=== PATIENT | female | born 1945 | race Caucasian/White ===

== ENCOUNTER 2021-07-29 13:14 | Emergency (ER) | payer OTHER ==
--- OUTSIDE RECORDS SUMMARY | 2021-07-29 13:19 | XMS REPORT | Continuity of Care Document ---
:1945 Author Organization [facility] t Address [address] [place] [address] Care Team Providers Name Role Phone FERNIE SCHWARZ Primary Care Physician Unavailable Betina LOYD Attending Clinician Unavailable Keenan WILSONP, D Attending Clinician Fernie Schwarz Attending Clinician Lab, Fam Pob I Attending Clinician Unavailable Traci GIL Attending Clinician TRACI Attending Clinician Unavailable Brandon WINSTON Attending Clinician Unavailable Tish AMANDA, S Attending Clinician Colton ER MEDICAL TECHNICIAN, F Attending Clinician Unavailable Roman AMANDA, L Attending Clinician Edinson Roa PT Attending Clinician Unavailable Doctor Unassigned, Name Attending Clinician Unavailable TISH, S Admitting Clinician Unavailable Payers Payer Name Policy Type Policy Number Effective Date Expiration Date Brandon sweet MEDICARE PART A [id number] 2011 \T\ B 00:00:00 [facility] - [id number] 2013 OUT OF STATE 00:00:00 Problems Condition Condition Condition Status Onset Resolution Last Treating Co mments Source Name Details Category Date Date Treatment Clinician Date 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 Social History Social Habit Start Date Stop Date Quantity Comments Source Exposure to Yes University of SARS-CoV-2 [facility] (event) Branch Sex Assigned At Universit y of [facility] Alcohol intake 2019-08-24 2019-08-24 Current drinker Unive rsity of 00:00:00 00:00:00 of alcohol [facility] (finding) [place] Tobacco use and 2019-08-24 2019-08-24 Never used Universit y of exposure 00:00:00 00:00:00 [facility] Alcohol Comment 2005-12-31 2005-12-31 rare Universit y of 00:00:00 00:00:00 [facility] Smoking Status Start Date Stop Date Source Never smoker [facility] Medications Ordered Filled Start Stop Current Ordering Indication Dosage Frequency Signature Comments Components Source Medication Medication Date Date Medication? Clinician (SIG) Name Name tetanus-dip 2020- No .5mL 0.5 mL, Un ludmila htheria 08-23 Intramuscu ity o f toxoids 09:45: 08:46 lar, ONCE, Av as (TDVAX) 2-2 00 :00 1 dose, Medic al Lf unit/0.5 [facility] Branch mL 08/24/19 at injection 0445, 0.5 mL Routine acetaminoph 2020- No 1000mg 1,000 mg, Univers en 08-23 Oral, ity of (TYLENOL) 09:30: 08:47 [place] :00 dose, [facility] 1,000 mg 08/24/19 at [facility] h 0430, Routine ondansetron 2020- No 4mg 4 mg, Univ ers (ZOFRAN-ODT 08-23 Oral, ity of ) 09:30: 08:20 ONCE, 1 [place] disintegrat 00 :00 dose, Mon Med ical ing tablet 08/24/19 at [facility] 4 mg 0430, Routine PHENERGAN Yes 1 every Unive rs 25 MG 5-05 6hrs as ity of RECTAL SUPP 00:[place] nausea/vom Medical iting Branch CELEXA 40 Yes 1 tab by Univ ers MG ORAL TAB 5-05 mouth ity of 00:00: daily [place] [id number] Medical Branch PHENERGAN Yes 1 every Unive rs 25 MG 5-05 6hrs as ity of RECTAL SUPP 00:[place] nausea/vom [place]ing Branch CELEXA 40 Yes 1 tab by Univ ers MG ORAL TAB 5-05 mouth ity of 00:00: daily [facility] PHENERGAN Yes 1 every Unive rs 25 MG 5-05 6hrs as ity of RECTAL SUPP 00:00[place] nausea/vom [place]ing Branch CELEX 40 Yes 1 tab by Univ ers MG ORAL TAB 5-05 mouth ity of 00:00: daily [facility] Branch PHENERGAN Yes 1 every Unive rs 25 MG 5-05 6hrs as ity of RECTAL SUPP 00:[place] nausea/vom [place]ing Branch CELEX 40 Yes 1 tab by Univ ers MG ORAL TAB 5-05 mouth ity of 00:00: daily [facility] PHENERGAN Yes 1 every Unive rs 25 MG 5-05 6hrs as ity of RECTAL SUPP 00:[place]: [place] nausea/vom [place] iting Branch CELEX 40 Yes 1 tab by Univ ers MG ORAL TAB 5-05 mouth ity of 00:00: daily [facility] PHENERGAN Yes 1 every Unive rs 25 MG 5-05 6hrs as ity of RECTAL SUPP 00:00[place] nausea/vom [place] iting Branch CELEX 40 Yes 1 tab by Univ ers MG ORAL TAB 5-05 mouth ity of 00:00: daily [facility] Branch PHENERGAN Yes 1 every Unive rs 25 MG 5-05 6hrs as ity of RECTAL SUPP 00:[place] nausea/vom [place] iting Branch CELEXA 40 Yes 1 tab by Univ ers MG ORAL TAB 5-05 mouth ity of 00:00: daily [facility] Branch PHENERGAN Yes 1 every Unive rs 25 MG 5-05 6hrs as ity of RECTAL SUPP 00:00: [place] 00 nausea/vom Medical iting Branch CELEXA 40 Yes 1 tab by Univ ers MG ORAL TAB 5-05 mouth ity of 00:00: daily [facility] Branch PHENERGAN Yes 1 every Unive rs 25 MG 5-05 6hrs as ity of RECTAL SUPP 00:00: [place] 00 nausea/vom Medical iting Branch CELEXA 40 Yes 1 tab by Univ ers MG ORAL TAB 5-05 mouth ity of 00:00: daily [place] [facility] PHENERGAN Yes 1 every Unive rs 25 MG 5-05 6hrs as ity of RECTAL SUPP 00:00: [place] 00 nausea/vom Medical iting Branch CELEXA 40 Yes 1 tab by Univ ers MG ORAL TAB 5-05 mouth ity of 00:00: daily [place] [facility] PHENERGAN Yes 1 every Unive rs 25 MG 5-05 6hrs as ity of RECTAL SUPP 00:00: [place] 00 nausea/vom Medical iting Branch CELEXA 40 Yes 1 tab by Univ ers MG ORAL TAB 5-05 mouth ity of 00:00: daily Medical Branch PHENERGAN Yes 1 every Unive rs 25 MG 5-05 6hrs as ity of RECTAL SUPP 00:00: [place] 00 nausea/vom Medical iting Branch CELEXA 40 Yes 1 tab by Univ ers MG ORAL TAB 5-05 mouth ity of 00:00: daily Medical Branch ATARAX 25 Yes 1 tab by Univ ers MG ORAL TAB 4-05 mouth ity of 00:00: every 6 [place] 00 hours as Medical needed for Branch hives itching ATARAX 25 Yes 1 tab by Univ ers MG ORAL TAB 4-05 mouth ity of 00:00: every 6 [place] 00 hours as Medical needed for Branch hives itching ATARAX 25 Yes 1 tab by Univ ers MG ORAL TAB 4-05 mouth ity of 00:00: every 6 [place] 00 hours as Medical needed for Branch hives itching ATARAX 25 Yes 1 tab by Univ ers MG ORAL TAB 4-05 mouth ity of 00:00: every 6 [place] 00 hours as Medical needed for Branch hives itching ATARAX 25 Yes 1 tab by Univ ers MG ORAL TAB 4-05 mouth ity of 00:00: every 6 [place] 00 hours as Medical needed for Branch hives itching ATARAX 25 2007-0 Yes 1 tab by Univ ers MG ORAL TAB 4-05 mouth ity of 00:00: every 6 [place] 00 hours as Medical needed for Branch hives itching ATARAX 25 Yes 1 tab by Univ ers MG ORAL TAB 4-05 mouth ity of 00:00: every 6 [place] 00 hours as Medical needed for Branch hives itching ATARAX 25 Yes 1 tab by Univ ers MG ORAL TAB 4-05 mouth ity of 00:00: every 6 [place] 00 hours as Medical needed for Branch hives itching ATARAX 25 Yes 1 tab by Univ ers MG ORAL TAB 4-05 mouth ity of 00:00: every 6 [place] 00 hours as Medical needed for Branch hives itching ATARAX 25 Yes 1 tab by Univ ers MG ORAL TAB 4-05 mouth ity of 00:00: every 6 [place] 00 hours as Medical needed for Branch hives itching ATARAX 25 Yes 1 tab by Univ ers MG ORAL TAB 4-05 mouth ity of 00:00: every 6 [place] 00 hours as Medical needed for Branch hives itching ATARAX 25 Yes 1 tab by Univ ers MG ORAL TAB 4-05 mouth ity of 00:00: every 6 [place] 00 hours as Medical needed for Branch hives itching Immunizations Ordered Filled Immunization Date Status Comments Sour e Immunization Name Name Td 2019-08-24 Completed University of 00:00:00 [facility] Branch Td 2019-08-24 Completed University of 00:00:00 [facility] Branch Td 2019-08-24 Completed University of 00:00:00 [facility] Branch Td 2019-08-24 Completed University of 00:00:00 [facility] Branch Td 2019-08-24 Completed University of 00:00:00 [facility] Branch Td 2019-08-24 Completed University of 00:00:00 [facility] Vital Signs Vital Name Observation Time Observation Value Comments Source Systolic blood 2019-08-24 07:28:40 149 mm[Hg] Univer sity of pressure [facility] Diastolic blood 2019-08-24 07:28:40 76 mm[Hg] Unive rsity of pressure [facility] Heart rate 2019-08-24 07:28:40 75 /[facility] Body temperature 2019-08-24 07:28:40 36.61 [facility] Respiratory rate 2019-08-24 07:28:40 18 /min [facility] Body height 2019-08-24 07:25:00 160 cm [facility] Body weight 2019-08-24 07:25:00 69.854 kg [facility] BMI 2019-08-24 07:25:00 27.28 kg/m2 [facility] Oxygen saturation in 2019-08-24 07:25:00 99 /min [facility] Arterial blood by [facility] Pulse oximetry [place] Procedures Procedure Date / Time Performed Performing Clinician Sourc e [place] RESUPERF WND BODY 2019-08-24 08:36:43 Shona Winston [facility] 2.5CM OR LESS [facility] CT HEAD WO CONTRAST 2019-08-24 07:50:42 Shona Winston [facility] PHYSICIAN ORDERS 2018-12-04 05:01:00 Doctor Unassigned, No Unive [facility] Encounters Start End Encounter Admission Attending Care Care Encounter Source Date/Time Date/Time Type Type Clinicians Facility Department ID 2021-05-10 Outpatient STLMLC STLMLC [id number] 13:07:03 [facility] 2020-06-08 2020-06-08 Outpatient Samantha LOYD [facility] [id number] Univers 11:20:00 11:20:00 TIFFANY [id number] [facility] [place] 2020-06-08 2020-06-08 Outpatient Samantha LOYD [facility] [id number] Univers 11:20:00 11:20:00 TIFFANY [facility] [place] 2020-05-11 2020-05-11 Outpatient Samantha LOYD [facility] [id number] Univers 10:00:00 10:00:00 TIFFANY [id number] [facility] [place] 2020-05-11 2020-05-11 Outpatient Samantha LOYD [facility] [id number] Univers 10:00:00 10:00:00 [facility] 2020-01-25 2020-01-25 Telephone KeenanRUST [id number] 00:00:00 00:00:00 [employer] [facility] [id number] [place] [id number] City [phone] Primary & 370 Specialty Care 2020-01-25 2020-01-25 Telephone Keenan [facility] [id number] Univers 00:00:00 00:00:00 KenWallstra D HEALTH [id number] [place] [id number] [place] [phone] [facility] Primary & 370 Branch Specialty Care 2020-01-25 2020-01-25 Telephone [place] Alan [id number] Univers 00:00:00 00:00:00 [facility] [id number] ity of [id number] [place] [phone] [facility] Primary 314 Branch Care Clinic 2020-01-25 2020-01-25 Telephone Keenan [facility] [id number] Univers 00:00:00 00:00:00 [employer] HEALTH [id number] [place] [id number] [place] [facility] [phone] [facility] Primary & 370 Branch Specialty Care 2020-01-24 2020-01-24 Laboratory Lab, Adc Fam Pob I [facility] 1.2. [id number] Univers 13:06:48 13:26:48 Only Traci Nicci [facility] [id number] ity of [place] [id number] Av as Professio [phone] Ms dical [place] [id number] Branch Office [address] One 2020-01-24 2020-01-24 Outpatient [facility] [id number] Univers 13:00:00 13:00:[id number] [facility] 2020-01-24 2020-01-24 Outpatient R TRACI [facility] [id number] Univers 13:00:00 13:00:00 NICCI [facility] [place] 2019-08-24 2019-08-24 Emergency X TISH [facility] ERT [id number] Univers 02:26:29 03:50:[address] [facility] 2019-08-24 2019-08-24 Emergency Tish [facility] [id number] Univers 02:26:29 03:50:00 Shona Taylor Oscar [id number] ity of [id number] [place] [phone] [facility] 084 Branch 2018-12-31 2018-12-31 Ancillary ColtonRasheed [facility] 1.2.840. 114 [id number] Univers 07:59:39 08:44:39 Visit Jayjay Owens [id number] it[id number] Profess[place] [phone] Ms dical nal 179 [facility] 2018-12-24 2018-12-24 Ancillary Rasheed Segura [facility] 1.2.840. [id number] Univers 08:10:58 08:55:58 Visit Jayjay Owens [id number] it[id number] Profess[place] [phone] Ms dical nal 179 [facility] 2018-12-22 2018-12-22 Ancillary Rasheed Segura [facility] 1.2.840. 114 [id number] Univers 08:03:25 08:48:25 Visit Jayjay Owens [id number] it[id number] Profess[place] [phone] Ms dical nal 179 [facility] 2018-12-19 2018-12-19 Ethan Neves [facility] [id number] Univers 00:00:00 00:00:00 Management Oscar Rao [id number] ity of [id number] Profess[place] [phone] Ms dical nal 179 [facility] 2018-12-10 2018-12-10 Ancillary Kenna Merida [facility] 1 .2.840.114 [id number] Univers 08:56:50 09:41:50 Visit Jayjay Owens [id number] ity of [place] [id number] Addison Cuetoio [phone] Ms dical [facility] 179 Branch [facility] 2018-12-04 2018-12-04 Orders Doctor TARAH [id number] Univers 00:00:00 00:00:00 Only Unassigned, MILADIS [id number] ity of [place] [facility] [id number] Av as [phone] [address] Results Test Description Test Test Results Result Source Time Comments Comments Laceration 2019-08- Shona Winston MD ? Un iversity of Repair 11 ? 08/24/2019 ?3:[address] [facility] 08:36:43 AMLaceration [place] RepairPerformed by: Shona Winston MDAuthorized by: Shona Winston MD Consent: ?Consent obtained: ?Verbal ?Risks discussed: ?Infection, need for additional repair, poor wound healing, poor cosmetic result, pain, tendon damage and vascular damage ?Alternatives discussed: ?No treatmentAnesthesia (see MAR for exact dosages): ?Anesthesia method: ?Local infiltration ?Local anesthetic: ?Lidocaine 1% WITH epiLaceration details: ?Location: ?Scalp ?Scalp location: ?Occipital ?Length (cm): ?2.5 ?Depth (mm): ?0.5Repair type: ?Repair type: ?SimplePre-procedure details: ?Preparation: ?Patient was prepped and draped in usual sterile fashion and imaging obtained to evaluate for foreign bodiesExploration: ?Hemostasis achieved with: ?Epinephrine ?Wound exploration: wound explored through full range of motion ? ?Wound extent: no areolar tissue violation noted, no fascia violation noted, no foreign bodies/material noted, no muscle damage noted, no nerve damage noted, no tendon damage noted, no underlying fracture noted and no vascular damage noted ? ?Contaminated: no ?Treatment: ?Area cleansed with: ?Hibiclens ?Amount of cleaning: ?Standard ?Irrigation solution: ?Sterile saline ?Visualized foreign bodies/material removed: no ?Skin repair: ?Repair method: ?Warren ?Number of ammon: ?4Approximation: ?Approximation: ?LoosePost-procedure details: ?Dressing: ?Antibiotic ointment ?Patient tolerance of procedure: ?Tolerated well, no immediate complications
[2021-07-29] MEDS ORDERED: TETANUS & DIPHTHERIA TOX,ADULT 0.5 ML VIAL ONE (13:55)
[2021-07-29] MEDS ORDERED: LIDOCAINE 1% MPF 5 ML VIAL ONE (13:55)
[2021-07-29] MEDS ORDERED: DERMABOND SKIN ADHESIVE TOP ONE (14:44)
--- NOTE | 2021-07-29 14:55 | ER ---
Nurse's Notes [facility] Name: Jaqueline Jensen Age: 76 yrs Sex: Female : 1945 Arrival Date: 07/29/2021 Time: 13:17 Bed 12 Private MD: Hill Smallwood T Diagnosis: Laceration without foreign body of right index finger without damage to nail Presentation: 07/29 13:39 Chief complaint: Patient states: Fell last night at 0100 with a plastic basket and it jl7 cut the right pointer finger. Coronavirus screen: At this time, the client does not indicate any symptoms associated with coronavirus-19. Ebola Screen: No symptoms or risks identified at this time. Initial Sepsis Screen: Does the patient meet any 2 criteria? No. Patient's initial sepsis screen is negative. Does the patient have a suspected source of infection? No. Patient's initial sepsis screen is negative. Risk Assessment: Do you want to hurt yourself or someone else? Patient reports no desire to harm self or others. Onset of symptoms was July 29, 2021 at 01:00. 13:39 Method Of Arrival: Ambulatory jl7 13:39 Acuity: DANIEL 4 jl7 Triage Assessment: 13:42 General: Appears in no apparent distress. uncomfortable, Behavior is calm, cooperative, jl7 appropriate for age. Pain: Complains of pain in Right index finger. Musculoskeletal: Reports Pain is 3 out of 10 on a pain scale. Injury Description: Laceration sustained to Right index finger. Historical: - Allergies: 13:42 No Known Allergies; jl7 - PMHx: 13:42 Hypertensive disorder; jl7 - PSHx: 13:42 Cholecystectomy; jl7 - Immunization history:: Client reports receiving the 2nd dose of the Covid vaccine. - Social history:: Smoking status: Patient denies any tobacco usage or history of. Screenin:00 Abuse screen: Denies threats or abuse. Denies injuries from another. Nutritional jl7 screening: No deficits noted. Tuberculosis screening: No symptoms or risk factors identified. Fall Risk Ambulatory Aid- Crutches/Cane/Walker (15 pts). Gait- Normal/Bed Rest/Wheelchair (0 pts) Total Box Fall Scale indicates No Risk (0-24 pts). Vital Signs: 13:39 BP 152 / 83; Pulse 76; Resp 17; Temp 98.9; Pulse Ox 97% ; Weight 62.14 kg; Pain 3/10; jl7 ED Course: 13:17 Patient arrived in ED. am2 13:17 Hill Smallwood MD is Private Physician. am2 13:28 Umesh Whitman NP is PHCP. pm1 13:28 Thai Troy MD is Attending Physician. pm1 13:42 Triage completed. jl7 13:42 Arm band placed on right wrist. jl7 13:45 Ely Jacobs RN is Primary Nurse. jl7 14:00 Patient has correct armband on for positive identification. Bed in low position. Call jl7 light in reach. Side rails up X 1. 14:54 Hill Smallwood MD is Referral Physician. pm1 15:15 Assist provider with laceration repair on Right index finger that was between 2.6 to jl7 7.5 cm using sutures and dermabond. Set up tray. Performed by Umesh Whitman BELLSTAND ATTENDANT Dressed with Kerlix, Patient tolerated well. 15:48 Patient did not have IV access during this emergency room visit. jl7 Administered Medications: 14:00 Drug: Tetanus-Diphtheria Toxoid Adult 0.5 ml {Atm Technician: [employer]. Exp: jl7 06/24/2023. Lot #: [id number]. } Route: IM; Site: left deltoid; 14:15 Follow up: Response: No adverse reaction jl7 14:20 Drug: Lidocaine (1 %) 5 ml {Note: administered by LIVIER Calvo.} Volume: 5 ml; Route: jl7 Infiltration; Outcome: 14:55 Discharge ordered by . pm1 15:48 Discharged to home ambulatory. jl7 15:48 Condition: stable 15:48 Discharge instructions given to patient, friend, Instructed on discharge instructions, follow up and referral plans. medication usage, Demonstrated understanding of instructions, follow-up care, medications, Prescriptions given X 3. 15:49 Patient left the ED. jl7 Signatures: Umesh Whitman NP BELLSTAND ATTENDANT pm1 Ely Jacobs RN RN jl7 Elisha Hyman am2 Corrections: (The following items were deleted from the chart) 13:44 13:42 PMHx: None; jl7 jl7
--- NOTE | 2021-07-29 14:55 | EDPHYS ---
Physician Documentation [facility] Name: Jaqueline Jensen Age: 76 yrs Sex: Female : 1945 Arrival Date: 07/29/2021 Time: 13:17 Bed 12 Private MD: Hill Smallwood T ED Physician Thai Troy HPI: 07/29 13:39 This 76 yrs old Female presents to ER via Ambulatory with complaints of Finger Injury. pm1 13:39 The patient or guardian reports a laceration. The complaints affect the Right index pm1 finger. Context: The problem was sustained at home, resulted from patient fell while holding a piece of plastic and the plastic cut her right index finger. Occurred at 0130 in the morning. Onset: The symptoms/episode began/occurred this morning. 13:39 Modifying factors: The symptoms are alleviated by pressure to area, and band-aids. pm1 Associated signs and symptoms: Pertinent negatives: cyanosis distally, decreased sensation distally, numbness distally, tingling distally, decreased range of motion. Severity of symptoms: in the emergency department the symptoms are unchanged. The patient has not experienced similar symptoms in the past. The patient has not recently seen a physician. Patient was holding a piece of plastic dish isidro and she tripped causing her to cut her right index finger. Historical: - Allergies: 13:42 No Known Allergies; jl7 - PMHx: 13:42 Hypertensive disorder; jl7 - PSHx: 13:42 Cholecystectomy; jl7 - Immunization history:: Client reports receiving the 2nd dose of the Covid vaccine. - Social history:: Smoking status: Patient denies any tobacco usage or history of. ROS: 13:39 Constitutional: Negative for fever, chills, and weight loss, Cardiovascular: Negative pm1 for chest pain, palpitations, and edema, Respiratory: Negative for shortness of breath, cough, wheezing, and pleuritic chest pain. 13:39 Neuro: Negative for headache, weakness, numbness, tingling, and seizure. 13:39 MS/extremity: Positive for laceration, pain, of the Right index finger, Negative for decreased range of motion, deformity. 13:39 Skin: Positive for laceration(s), of the Right index finger. 13:39 All other systems are negative. Exam: 13:39 Constitutional: This is a well developed, well nourished patient who is awake, alert, pm1 and in no acute distress. Head/Face: Normocephalic, atraumatic. 13:39 Cardiovascular: Exam negative for acute changes, Rate: normal, Rhythm: regular, Pulses: no pulse deficits are appreciated. 13:39 Respiratory: Exam negative for acute changes, respiratory distress, shortness of breath. 13:39 Musculoskeletal/extremity: ROM: full active range of motion, in the right thumb, right middle finger, right ring finger, right little finger and Right index finger, Circulation is intact in all extremities. the right thumb, right middle finger, right ring finger, right little finger and Right index finger Sensation intact. 13:39 Skin: Appearance: normal except for affected area, small 0.5 cm laceration with surrounding 3 cm x 1 cm skin tear. 13:39 Neuro: Exam negative for acute changes, Orientation: is normal, Mentation: is normal, Motor: is normal, moves all fours, Sensation: is normal, no obvious gross deficits. Vital Signs: 13:39 BP 152 / 83; Pulse 76; Resp 17; Temp 98.9; Pulse Ox 97% ; Weight 62.14 kg; Pain 3/10; jl7 Laceration: 15:23 Wound Repair of 3cm ( 1.2in ) subcutaneous laceration to Right index finger medial pm1 aspect . skin tear with underlying small 1 cm laceration. Distal neuro/vascular/tendon intact. Anesthesia: Digital block administered with 2 mls of 1% lidocaine. Wound prep: Extensive cleansing with betadine by me, Wound irrigation with saline by me, Wound explored extensively, Copious irrigation. Skin closed with 3 4-0 Prolene using simple sutures with sterile technique and dermabond for skin tears. Dressed with 4x4's, finger splint. Patient tolerated well. MDM: 13:28 Patient medically screened. pm1 13:32 Data reviewed: vital signs. pm1 14:54 Counseling: I had a detailed discussion with the patient and/or guardian regarding: the pm1 historical points, exam findings, and any diagnostic results supporting the discharge/admit diagnosis, the need for outpatient follow up, to return to the emergency department if symptoms worsen or persist or if there are any questions or concerns that arise at home. 07/29 13:33 Order name: Gloves, Sterile; Complete Time: 14:27 pm1 04/16 13:33 Order name: Prolene, Sutures; Complete Time: 14:27 pm1 07/29 13:33 Order name: Setup Suture Tray; Complete Time: 14:27 pm1 07/29 15:02 Order name: Finger Splint; Complete Time: 15:50 pm1 07/29 15:02 Order name: Dermabond; Complete Time: 15:50 pm1 Administered Medications: 14:00 Drug: Tetanus-Diphtheria Toxoid Adult 0.5 ml {Switchman: 37coins. Exp: jl7 06/24/2023. Lot #: [id number]. } Route: IM; Site: left deltoid; 14:15 Follow up: Response: No adverse reaction 14:20 Drug: Lidocaine (1 %) 5 ml {Note: administered by LIVIER Calvo.} Volume: 5 ml; Route: jl7 Infiltration; Disposition Summary: 07/29/21 14:55 Discharge Ordered Location: Home pm1 Problem: new pm1 Symptoms: have improved pm1 Condition: Stable pm1 Diagnosis - Laceration without foreign body of right index finger without damage to nail pm1 Followup: pm1 - With: Emergency Department - When: As needed - Reason: Worsening of condition Followup: pm1 - With: Hill Smallwood MD - When: 10 - 14 days - Reason: Recheck today's complaints, Continuance of care, Re-evaluation by your physician Discharge Instructions: - Discharge Summary Sheet pm1 - Tissue Adhesive Wound Care pm1 - Sutures, [place], or Adhesive Wound Closure pm1 - Elbow Bursitis pm1 Forms: - Medication Reconciliation Form pm1 - Thank You Letter pm1 - Antibiotic Education pm1 - Prescription Opioid Use pm1 Prescriptions: - Cephalexin 500 mg Oral Capsule - take 1 capsule by ORAL route every 6 hours for 10 days; 40 capsule; Refills: 0, pm1 Product Selection Permitted - Diflucan 150 mg Oral Tablet - take 1 tablet by ORAL route one time for 1 day; 1 tablet; Refills: 0, Product pm1 Selection Permitted - Tylenol-Codeine #3 300 mg-30 mg Oral - take 1 tablet by ORAL route every 6 hours As needed; 12 tablet; Refills: 0, pm1 Product Selection Permitted Signatures: Umesh Whitman NP [employer] pm1 Ely Jacobs RN RN jl7 Corrections: (The following items were deleted from the chart) 13:44 13:42 PMHx: None; jl7 jl7
[2021-07-29 16:08] VITALS: BP 152/83; TEMP 98.9; O2SAT 97
== END 2021-07-29 15:49 | disposition home or self-care (01) ==
LOC: ER 13:14
PROC: 0JQJ0ZZ Repair Right Hand Subcutaneous Tissue and Fascia, Open Approach (ICD-10-PCS; principal; 2021-07-29)
DX: S61.216A Laceration without foreign body of right little finger without damage to nail, initial encounter (principal); W45.8XXA Other foreign body or object entering through skin, initial encounter; Z23 Encounter for immunization; I10 Essential (primary) hypertension
CPT/HCPCS: 90471; 90714; 99283

== ENCOUNTER 2022-06-14 17:05 | Inpatient (IN) | payer OTHER ==
[2022-06-14 17:43] LABS: SARS-CoV-2 Antigen Rapid Res Negative (Negative)
--- OUTSIDE RECORDS SUMMARY | 2022-06-14 18:35 | XMS REPORT | Continuity of Care Document ---
:1945 Author Organization [facility] t Address [address] [place] [id number] Care Team Providers Name Role Phone [place] Primary Care Physician Radiology Attending Clinician Unavailable RADIOLOGY Attending Clinician Unavailable Doctor Unassigned, [place] Attending Clinician Unavailable FERNANDO MCGREGOR Attending Clinician Unavailable Fernando Wade Attending Clinician TIFFANY LOYD Attending Clinician Unavailable Kerri Reyna Attending Clinician [phone] [place] Attending Clinician Lab, Adc Fam Pob I Attending Clinician Unavailable Nicci Potter Attending Clinician NICCI AVILES Attending Clinician Unavailable SHONA WINSTON Attending Clinician Unavailable Shona Winston MD Attending Clinician Rasheed Segura PTA Attending Clinician Unavailable Jayjay Owens MD Attending Clinician Kenna Merida PT Attending Clinician Unavailable FERNANDO MCGREGOR Admitting Clinician Unavailable SHONA WINSTON Admitting Clinician Unavailable Payers Payer Name Policy Type Policy Number Effective Date Expiration Date S ource Problems Condition Condition Condition Status Onset Resolution Last Treating Co mments Source Name Details Category Date Date Treatment Clinician Date 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 9-24 ity of 00:00: [address] Allergies, Adverse Reactions, Alerts Allergy Allergy Status Severity Reaction(s) Onset Inactive Treating Comm ents Source Name Type Date Date Clinician NO KNOWN Drug Active Univers ALLERGIE Class ity of S [facility] Social History Social Habit Start Date Stop Date Quantity Comments Source History SDOH University o f Alcohol Frequency [place] M ed[facility] History SDOH University o f Alcohol Std [place] Medical Drinks Branch History SDTN University o f Alcohol Binge [place] [facility] al [facility] Exposure to 2022-05-18 2022-05-28 Not sure [facility]-CoV-2 00:00:00 13:50:00 [facility] (event) [place] Alcohol intake 2021-11-23 2021-11-23 Current drinker Unive rsity of 00:00:00 00:00:00 of alcohol [facility] (finding) [place] Tobacco use and 2018-06-11 2018-06-11 Smokeless tobacco Un iversity of exposure 00:00:00 00:00:00 non-user [facility] Alcohol Comment 2005-12-31 2005-12-31 rare Universit y of 00:00:00 00:00:00 [facility] Sex Ass[birth year] At [birth year] Universit y of 00:00:00 00:00:00 [facility] Smoking Status Start Date Stop Date Source Never smoked tobacco [facility] Medications Ordered Filled Start Stop Current Ordering Indication Dosage Frequency Signature Comments Components Source Medication Medication Date Date Medication? Clinician (SIG) Name Name aspirin No 325mg 325 mg, Unive rs tablet 325 11-24 Oral, ity of mg 03:00: 01:55 ONCE, 1 [place] 00 :00 dose, On Medical Kendy Branch 11/23/21 at 2200, KARYN tetanus-dip 2020- No .5mL 0.5 mL, Un ludmila htheria 08-23 Intramuscu ity o f toxoids 09:45: 08:46 lar, ONCE, Av as (TDVAX) - 00 :00 1 dose, Medic al Lf unit/0.5 Mon Branch mL 08/24/19 at injection 0445, 0.5 mL Routine acetaminoph 2020- No 1000mg 1,000 mg, Univers en 08-23 Oral, ity of (TYLENOL) 09:30: 08:47 [place] :[place] dose, Mon Medical 1,000 mg 08/24/[address] [facility] h 0430, Routine ondansetron 2019-0 2020- No 4mg 4 mg, Univ ers (ZOFRAN-ODT 08-23 Oral, ity of ) 09:30: 08:20 ONCE, 1 [place] disintegrat 00 :00 dose, Mon Med ical ing tablet 08/24/19 at [facility] 4 mg 0430, Routine PHENERGAN Yes 1 [...] [place] nausea/vom Medical iting Branch PHENERGAN Yes 1 every Unive rs 25 MG 5-05 6hrs as ity of RECTAL SUPP 00:[place] nausea/vom Medical [place]ing [place] CELEXA 40 Yes 1 tab by Univ ers MG ORAL TAB 5-05 mouth ity of 00:00: daily Medical Branch CELEXA 40 Yes 1 tab by [...] [place] nausea/vom Medical [place]ing Branch PHENERGAN Yes 1 every Unive rs 25 MG 5-05 6hrs as ity of [place]AL [place]PP 00:[place] nausea/vom Medical [place]ing Branch CELEXA 40 Yes 1 tab by Univ ers MG ORAL TAB 5-05 mouth ity of 00:00: daily Medical Branch CELEXA 40 Yes 1 tab by [...] TAB 5-05 mouth ity of 00:00: daily [facility] Branch PHENERGAN Yes 1 every Unive rs [...] Immunizations Ordered Filled Immunization Date Status Comments [facility] Immunization Name Name SARS-COV-2 COVID-19 2020-06-08 Completed Unive rsity of MODERNA VACCINE 00:00:00 [place] Med ical Branch SARS-COV-2 COVID-19 2020-06-08 Completed Unive rsity of MODERNA 12+ YRS 00:00:00 [place] Med ical VACCINE Branch SARS-COV-2 COVID-19 2020-06-08 Completed Unive rsity of MODERNA 12+ YRS 00:00:00 [place] Med ical VACCINE Branch SARS-COV-2 COVID-19 2020-06-08 Completed Unive rsity of MODERNA 12+ YRS 00:00:00 [place] Med ical VACCINE Branch SARS-COV-2 COVID-19 2020-05-11 Completed Unive rsity of MODERNA VACCINE 00:00:00 [place] Med ical Branch SARS-COV-2 COVID-19 2020-05-11 Completed Unive rsity of MODERNA 12+ YRS 00:00:00 [place] Med ical VACCINE Branch SARS-COV-2 COVID-19 2020-05-11 Completed Unive rsity of MODERNA 12+ YRS 00:00:00 [place] Med ical VACCINE Branch SARS-COV-2 COVID-19 2020-05-11 Completed Unive rsity of MODERNA 12+ YRS 00:00:00 [facility] ical VACCINE Branch Td 2019-08-24 Completed University of 00:00:00 [place] [facility] Td 2019-08-24 Completed University of 00:00:00 [place] [facility] TD, NOS 2019-08-24 Completed University of 00:00:00 [place] [facility] TD, NOS 2019-08-24 Completed University of 00:00:00 [place] [facility] TD, NOS 2019-08-24 Completed University of 00:00:00 [place] [facility] Td 2019-08-24 Completed University of 00:00:00 [place] [facility] Td 2019-08-24 Completed University of 00:00:00 [place] [facility] Td 2019-08-24 Completed University of 00:00:00 [place] [facility] Td 2019-08-24 Completed University of 00:00:00 [place] [facility] Td 2019-08-24 Completed University of 00:00:00 [facility] Vital Signs Vital Name Observation Time Observation Value Comments Source Systolic blood 2021-11-24 04:00:00 148 mm[Hg] Univer sity of pressure [facility] Diastolic blood 2021-11-24 04:00:00 73 mm[Hg] Unive rsity of pressure [facility] Heart rate 2021-11-24 04:00:00 66 /min [facility] Respiratory rate 2021-11-24 04:00:00 18 /min [facility] ersity [facility] [place] [facility] Oxygen saturation in 2021-11-24 04:00:00 96 /min University of Arterial blood by [facility] Pulse oximetry Branch Body temperature 2021-11-24 01:45:00 36.11 Karla [facility] Body weight 2021-11-24 01:45:00 60.328 kg Universi ty [facility] BMI 2021-11-24 01:45:00 23.56 kg/m2 Universi ty [facility] Systolic blood 2019-08-24 07:28:40 149 mm[Hg] Univer sity of pressure [facility] Diastolic blood 2019-08-24 07:28:40 76 mm[Hg] Unive rsity of pressure [facility] Heart rate 2019-08-24 07:28:40 75 /min Universi ty [facility] Body temperature 2019-08-24 07:28:40 36.61 Karla [facility] Res[facility] rate 2019-08-24 07:28:40 18 /min [facility] Body height 2019-08-24 07:25:00 160 cm Universi ty [facility] Body weight 2019-08-24 07:25:00 69.854 kg Universi ty [facility] BMI 2019-08-24 07:25:00 27.28 kg/m2 Universi ty [facility] Oxygen saturation in 2019-08-24 07:25:00 99 /min University of Arterial blood by [facility] Pulse oximetry Branch Procedures Procedure Date / Time Performing Clinician Source Performed DEXA AXIAL (HIP AND 2022-05-28 20:34:44 Elian Mijares [facility] SPINE) Medical Branch ASSIGNMENT OF BENEFITS 2022-05-28 19:47:05 Doctor Unassigned, No University [facility] Name [facility] Branch EKG-12 LEAD 2021-11-24 04:39:38 [facility] TROPONIN I 2021-11-24 03:39:00 [facility] XR CHEST 1 VW 2021-11-24 02:18:05 [facility] LIPASE 2021-11-24 01:51:00 [facility] TROPONIN I 2021-11-24 01:51:00 [facility] COMP. METABOLIC PANEL 2021-11-24 01:51:00 [id number] CBC WITH DIFF 2021-11-24 01:51:00 [facility] PROTHROMBIN TIME / INR 2021-11-24 01:51:00 [facility] NOTICE OF PRIVACY 2021-11-24 01:42:57 Doctor Unassigned, No [facility] Name Medical Branch CONSENT/REFUSAL FOR 2021-11-24 01:40:58 Doctor Unassigned, No [facility] DI[facility] AND Name [facility] TREATMENT SD RESUPERF WND BODY 2019-08-24 08:36:43 Shona Winston [facility] 2.5CM OR LESS [facility] CT HEAD WO CONTRAST 2019-08-24 07:50:42 Shona Winston [facility] PHYSICIAN ORDERS 2018-12-04 05:01:00 [facility]igned[facility] Start End Encounter Admission Attending Care Care Encounter Source Date/Time Date/Time Type Type Clinicians Facility Department ID 2022-06-13 [facility] [id number] Common 15:53:01 [id number] [facility] 2022-01-18 Outpatient [facility] [id number] Common 14:37:01 [facility] 2021-05-10 Outpatient STLC [facility] [id number] Common 13:07:03 [facility] 2022-05-28 2022-05-28 [facility] Radiology [facility] 1.2.840.114 [id number] Univers 14:08:16 23:59:00 [id number] 4.2.7.2.686 [facility] [id number] [facility] 800 Branch 2022-05-28 2022-05-28 [facility] Radiology [facility] [id number] Univers 13:50:55 14:07:00 Encounter ANALY [id number] ity of [place] 4.2.7.2.686 [facility] [id number] [facility] 800 Branch 2022-05-28 2022-05-28 Outpatient R RADIOLOGY [facility] [id number] Univers 00:00:00 14:07:00 ity of [facility] 2022-05-28 2022-05-28 Orders Doctor TARAH 1.2.840.114 [id number] Univers 00:00:00 00:00:00 Only Unassigned, MILADIS [id number] ity of [place] [facility] 4.2.7.[address] [place] [address] [id number] [facility] 009 Branch 2021-11-23 2021-11-24 Emergency X RIDDLE, [facility] ERT [id number] Univers 20:42:00 00:04:00 CHRISTCHRISTIANOER it y of [facility] 2021-11-23 2021-11-24 Emergency [place], [facility] [id number] Univers 20:42:00 00:04:00 Christchristianoer ANALY [id number] ity of [place] 4.2.7.2.6 [facility] [id number] [facility] 084 Branch 2020-06-08 2020-06-08 Outpatient R RACH [facility] [id number] Univers 11:20:00 11:20:00 TIFFANY ity of [facility] 2020-05-11 2020-05-11 [facility] [id number] Univers 10:00:00 10:00:00 TIFFANY ity of [facility] 2020-01-25 2020-01-25 Telephone Keenan [facility] 1.2.840.114 [id number] Univers 00:00:00 00:00:00 Kerri Ng [place] [id number] ity of [place] [address].7.[address] [place] [address] [id number] [facility] Primary & 370 Branch Specialty Care 2020-01-25 2020-01-25 Telephone [place] 1.2.840.114 [id number] Univers 00:00:00 00:00:00 Fernie Pediatric [id number] ity of [place]2.686 [place] [id number] [facility] Primary 314 Branch Care Clinic 2020-01-25 2020-01-25 Tele[facility] 1.2.840.114 [id number] Univers 00:00:00 00:00:00 KenProficientqua D HEALTH [id number] ity of [place] 4[place]2.7.2.686 [place] [facility] [id number] [facility] Primary & 370 Branch Specialty Care 2020-01-25 2020-01-25 Telephone [facility] 1.2.840.114 [id number] 00:00:00 00:00:00 Kennereydaqua D HEALTH 350.1.13.10 [place] 4.2.7.2.686 [place] [id number] Primary & 370 Specialty Care 2020-01-24 2020-01-24 Laboratory Lab, Adc Fam Pob I [facility] 1.2. [id number] Univers 13:06:48 13:26:48 Only Traci [facility] [id number] ity of [place] 4.2.7.2.686 Av as Professio [phone] In dical [facility] 044 [place] [address] One 2020-01-24 2020-01-24 Outpatient R TRACI [facility] [id number] Univers 13:00:00 13:00:00 [facility] 2019-08-24 2019-08-24 Emergency X [facility] ERT [id number] Univers 02:26:29 03:50:00 [facility] 2019-08-24 2019-08-24 Emergency [facility] [id number] Univers 02:26:29 03:50:00 Shona Moore 350.1.13.10 ity of [place]2.686 [place] [id number] [facility] 084 Branch 2018-12-31 2018-12-31 Ancillary Rasheed Segura [facility] 1.2.840. 114 [id number] Univers 07:59:39 08:44:39 Visit Jayjay Owens 350.1.13.10 ity of [place]2.[place] Profess[place] [phone] In dical nal 179 Branch Building 2018-12-24 2018-12-24 Ancillary Rasheed Segura [facility] 1.2.840. 114 [id number] Univers 08:10:58 08:55:58 Visit Jayjay Owens 350.1.13.10 ity of [place] 4[place]2.[place] Professio [id number] In dical nal 179 [facility] 2018-12-22 2018-12-22 Ancillary Rasheed Segura [facility] 1.2.840. 114 [id number] Univers 08:03:25 08:48:25 Visit Jayjay Owens 350.1.13.10 ity of [place]2.[place] Profess[place] [phone] In dical nal 179 [facility] 2018-12-19 2018-12-19 [facility] Edinson [facility] 1.2.840.114 [id number] Univers 00:00:00 00:00:00 Management Analy Rao 350.1.13.10 ity of [place]2.[place].2.[place] Profess[place] [phone] In dical nal 179 [facility] 2018-12-10 2018-12-10 Ancillary Edinson Rao Kenna [facility] 1 .2.840.114 [id number] Univers 08:56:50 09:41:50 Visit Jayjay Owens 350.1.13.10 ity of [place] 4[place]2.[place].2.[place] Profess[place] [phone] In dical nal 179 [facility] 2018-12-04 2018-12-04 Orders Doctor TARAH 1.2.840.114 [id number] Univers 00:00:00 00:00:00 Only Unassigned, MILADIS 350.1.13.10 ity of [place] [facility] 4.2.7.2.686 Av as [phone] [place] [address] Branch Results Test Description Test Time Test Comments Results Result Comments Source TROPONIN I 2021-11-24 04:28:49 Test Item Value Reference Range Interpretation Comme nts TROPONIN I (test code = 0.002 ng/mL See_Comment [Au tomated message] The 0420869409) system which ge nerated this result tra nsmitted reference range : <=0.034. The reference r kelivn was not used to int erpret this result as normal/abnormal . WESTON (test code = WESTON) Reference (Normal) Range (defined by the 99th percentile reference limit): <= 0.034 ng/mL Note: Cardiac troponin begins to rise 3-4 hours after the onset of ischemia. Repeat in 4-6 hours if the sample was drawn within 3-4 hours of the onset of the symptom and found normal. Diagnosis of myocardial injury is made with acute changes in cTn concentrations with at least one serial sample above the 99th percentile upper reference limit (URL), taken together with the patient's clinical presentation. Biotin has been reported to cause a negative bias, interpret results relative to patient's use of biotin. Lab Interpretation Normal (test code = 09967-3) [facility] [id number] 02:20:01 Test Item Value Reference Interpretation Comments Range TROPONIN I (test 0.003 ng/mL See_Comment [Automated code = 3180220500) message] The system which generated this result transmitted reference range : <=0.034. The reference range was not used to interpret this result as normal/abnormal . WESTON (test code = Reference (Normal) WESTON) Range (defined by the 99th percentile reference limit): <= 0.034 ng/mL Note: Cardiac troponin begins to rise 3-4 hours after the onset of ischemia. Repeat in 4-6 hours if the sample was drawn within 3-4 hours of the onset of the symptom and found normal. Diagnosis of myocardial injury is made with acute changes in cTn concentrations with at least one serial sample above the 99th percentile upper reference limit (URL), taken together with the patient's clinical presentation. Biotin has been reported to cause a negative bias, interpret results relative to patient's use of biotin. Lab Interpretation Normal (test code = 80213-6) [place] [facility] / [id number] 02:08:01 Test Item Value Reference Range Interpretation Comments PROTIME PATIENT (test See_Comment [Auto mated message] code = 5964-2) The system [employer] website generated this result transmitted ref erence range: 12.0 - 1 4.7 Seconds. The re ference range was not u sed to interpret this result as normal/abnor mal. INR (test code = 6301-6) Nor mal INR <1.1; Warfarin Therap eutic range 2.0 to 3. 0 or 2.5 to 3.5, dep ending upon the indica tions. Lab Interpretation (test Normal code = 56058-8) [facility]20[facility] 02:07:36 Test Item Value Reference Range Interpretation Comments LIPASE (test code = 3884951222) 122 U/L 0-220 Lab Interpretation (test code = Normal 40240-4) [facility] Worth[facility]. METABOLIC PANEL (90870)2021-11-24 02:07:36 Test Item Value Reference Range Interpretation Comments NA (test code = 141 mmol/L 135-145 7496054979) K (test code = 3.5 mmol/L 3.5-5 5435207473) CL (test code = 105 mmol/L 98-108 6515343452) CO2 TOTAL (test code 29 mmol/L 23-31 = 2259293370) AGAP (test code = 2-16 3279880317) BUN (test code = 18 mg/dL 7-23 9786202444) GLUCOSE (test code = 109 mg/dL 70-110 1303863296) CREATININE (test code 0.62 mg/dL 0.5-1.04 = 6294053534) TOTAL BILI (test code 0.4 mg/dL 0.1-1.1 = 5478408184) CALCIUM (test code = 9.3 mg/dL 8.6-10.6 3573283563) T PROTEIN (test code 6.8 g/dL 6.3-8.2 = 4009385667) ALBUMIN (test code = 4.1 g/dL 3.5-5 5518916821) ALK PHOS (test code = 106 U/L 34-122 6717579544) ALTv (test code = 17 U/L 5-35 1742-6) AST(SGOT) (test code 21 U/L 13-40 = 7104945469) eGFR (test code = mL/min/1.73m2 6174266175) WESTON (test code = WESTON) Association of Glomerular Filtration Rate (GFR) and Staging of Kidney Disease* + + +- +| GFR (mL/min/1.73 m2) ?| With Kidney Damage ?| ?Without Kidney Damage+ ------+ ----+ ------+| ?>90 ?| ?Stage one ?| ? Normal ?+ -+ + -+| ?60-89 ?| ?Stage two ?| ? Decreased GFR ? + + +- +| ?30-59 ?| ?Stage three ?| ? Stage three ? + + +- +| ?15-29 ?| ?Stage four ? | ? Stage four ?+ -+ + -+| ?<15 (or dialysis) ? ?| ?Stage five ? | ? Stage five ?+ -+ + -+ *Each stage assumes the associated GFR level has been in effect for at least three months. ?Stages 1 to 5, with or without kidney disease, indicate chronic kidney disease. Notes: Determination of stages one and two (with eGFR >59mL/min/1.73 m2) requires estimation of kidney damage for at least three months as defined by structural or functional abnormalities of the kidney, manifested by either:Pathological abnormalities or Markers of kidney damage (including abnormalities in the composition of the blood or urine or abnormalities in imaging tests). [facility] WITH [id number] 01:57:20 Test Item Value Reference Range Interpretation Comments WBC (test code = See_Comment [Automated 5187-2) message] The sy stem which generated this result transmitted reference range : 4.30 - 11.10 10*3/?L. The reference range was not used to interpret this result as normal/abnormal . RBC (test code = See_Comment [Automated 697-9) message] The sy stem which generated this result transmitted reference range : 3.93 - 5.25 10*6/?L. The reference range was not used to interpret this result as normal/abnormal . HGB (test code = 12.8 g/dL 11.6-15 718-7) HCT (test code = 39.0 % 35.7-45.2 4544-3) MCV (test code = 93.3 fL 80.6-95.5 787-2) MCH (test code = 30.6 pg 25.9-32.8 785-6) MCHC (test code = 32.8 g/dL 31.6-35.1 786-4) RDW-SD (test code = 44.8 fL 39-49.9 19973-6) RDW-CV (test code = 13.2 % 12-15.5 788-0) PLT (test code = See_Comment [Automated 777-3) message] The sy stem which generated this result transmitted reference range : 166 - 358 10*3/ ?L. The reference r kelvin was not used to interpret this result as normal/abnormal . MPV (test code = 9.4 fL 9.5-12.9 L 07593-9) NRBC/100 WBC (test See_Comment [Automat ed code = 8078962944) message] The system which generated this result transmitted reference range : 0.0 - 10.0 /100 WBCs. The refer ence range was not u sed to interpret th is result as normal/abnormal . NRBC x10^3 (test code See_Comment [Auto mated = 2905682942) message] The s ystem which generated this result transmitted reference range : 10*3/?L. The reference range was not used to interpret this result as normal/abnormal . GRAN MAT (NEUT) % 53.4 % (test code = 770-8) IMM GRAN % (test code 0.40 % = 0601310004) LYMPH % (test code = 39.0 % 736-9) MONO % (test code = 5.4 % 5905-5) EOS % (test code = 1.2 % 713-8) BASO % (test code = 0.6 % 706-2) GRAN MAT x10^3(ANC) 3.59 10*3/uL 1.88-7.09 (test code = 8884103291) IMM GRAN x10^3 (test 0.03 10*3/uL 0-0.06 code = 2675841403) LYMPH x10^3 (test code 2.62 10*3/uL 1.32-3.29 = 731-0) MONO x10^3 (test code 0.36 10*3/uL 0.33-0.92 = 742-7) EOS x10^3 (test code = 0.08 10*3/uL 0.03-0.39 711-2) BASO x10^3 (test code 0.04 10*3/uL 0.01-0.07 = 704-7) Lab Interpretation Abnormal (test code = 79343-4) [facility] [id number] 08:36:43Shona Winston MD ? ? 08/24/2019 ?3:47 AMLaceration RepairPerformed by: Shona Winston MDAuthorized by: Shona Winston MD Consent: ?Consent obtained: ?Verbal ?Risks discussed: ?Infection, need for additional repair, poor wound healing, poor cosmetic result, pain, tendon damage and vascular damage ?Alternatives discussed: ?No treatmentAnesthesia (see MAR for exact dosages): ?Anesthesia method:?Local infiltration ?Local anesthetic: ?Lidocaine 1% WITH epiLaceration details: ?Location: ?Scalp ?Scalp location: ?Occipital ?Length (cm): ?2.5 ?Depth (mm): ?0.5Repair type: ?Repair type: ?SimplePre-procedure details: ?Preparation: ?Patient was prepped and draped in usual sterile fashion and imagingobtained to evaluate for foreign bodiesExploration: ?Hemostasis achieved with: ?Epinephrine ?Wound exploration: wound explored through full range of motion ? ?Wound extent: no areolar tissue violation noted, no fascia violation noted, no foreign bodies/material noted, no muscle damage noted, no nerve damage noted, no tendon damage noted, no underlying fracture noted and no vascular damage noted ? ?Con taminated: no ?Treatment: ?Area cleansed with: ?Hibiclens ?Amount of cleaning: ?Standard ?Irrigationsolution: ?Sterile saline ?Visualized foreign bodies/material removed: no ?Skin repair: ?Repair method: ?Booker ?Number of ammon: ?4Approximation: ?Approximation: ?LoosePost-procedure details: ?Dress ing: ?Antibiotic ointment ?Patient tolerance of procedure: ?Tolerated well, no immediate complicationsUnMethod[facility]"
[2022-06-14] MEDS ORDERED: TRAMADOL HCL 50 MG TAB PO PRN (19:07)
[2022-06-14] MEDS ORDERED: ONDANSETRON 4 MG/2 ML VIAL IV PRN (19:07)
[2022-06-14] MEDS ORDERED: MELATONIN 5 MG TABLET PO PRN (19:07)
[2022-06-14] MEDS ORDERED: ACETAMINOPHEN 325 MG TABLET PO PRN (19:10)
[2022-06-14 19:26] LABS: Absolute Lymphocytes (CBC) 1.8 K/uL (0.7-4.9); Hematocrit 39.9 % (36.0-45.0); Lymphocytes % 28.1 % (15.3-44.8); MCV 91.3 fL (80-100); MPV 7.2 fL (7.6-11.3); RBC Red Blood Cell Count 4.37 M/uL (3.86-4.86)
[2022-06-14 19:47] LABS: Albumin 3.6 g/dL (3.4-5.0); Bilirubin Total 0.4 mg/dL (0.2-1.0); Potassium 3.2 mmol/L (3.5-5.1); Protein, Total 7.3 g/dL (6.4-8.2)
--- NOTE | 2022-06-14 20:00 | P.HP ---
Certification for Inpatient Patient admitted to: Inpatient With expected LOS: >2 Midnights Patient will require the following post-hospital care: None Practitioner: I am a practitioner with admitting privileges, knowledge of patient current condition, hospital course, and medical plan of care. Services: Services provided to patient in accordance with Admission requirements found in Title 42 Section 412.3 of the Code of Federal Regulations Patient History Date of Service: 06/14/22 Reason for admission: Cellulitis/ulceration right foot History of Present Illness: 77-year-old female with history of hypertension, GERD, restless legs syndrome was directly admitted to the hospital with request from her professor of practice for further evaluation of right foot ulceration/cellulitis with concern for possible osteomyelitis. She has been dealing with an ulceration between her fourth and fifth toes on her right foot for some time now, she reports a few weeks ago she had tried to clean the ulcerated area with a metal device and subsequently developed an infection in that area. She has been on cefdinir for the last 1 week and continues to have worsening of the surrounding erythema in the area. She was directly admitted for IV antibiotics and MRI to rule out osteomyelitis. I obtained labs upon arrival to hospital which were only remarkable for mild hypokalemia with a potassium of 3.2. Her white was a count normal at 6.3, she is afebrile. Allergies No Known Drug Allergies Allergy (Unverified 07/13/14 08:05) Unknown No Known Allergies Allergy (Uncoded 03/12/17 15:22) Unknown Home Medications: Escitalopram [Lexapro*] 20 mg PO DAILY 06/11/14 Gabapentin [Neurontin*] 400 mg PO DAILY 06/11/14 Levothyroxine [Synthroid*] 1 tab PO DAILY 06/11/14 Methscopolamine [place] [Pamine Forte] 5 mg PO DAILY 06/11/14 Pantoprazole [Protonix Tab*] 40 mg PO DAILY 06/11/14 Pramipexole [Mirapex*] 1 mg PO DAILY 06/11/14 hydroCHLOROthiazide [Hydrodiuril*] 25 mg PO DAILY 06/11/14 Levofloxacin [Levaquin] 500 mg PO DAILY #7 tablet 06/13/14 metroNIDAZOLE [Flagyl*] 500 mg PO Q8H #21 tablet 06/13/14 - Past Medical/Surgical History Diabetic: No -: RA -: RLS -: GERD -: hypothyroidism -: Chronic leg swealling -: Hypertension -: Discectomy -: Knee surgery -: Carpal tunnel -: Cholecystectomy -: Hysterectomy -: Right foot surgery Psychosocial/ Personal History: Patient lives at home with her - Family History Mother -: Heart disease, Stroke, Cancer Father -: Cancer, Other (see notes) Notes: alzhiemers - Social History Smoking Status: Never smoker Alcohol use: Yes CD- Drugs: No Caffeine use: Yes Place of Residence: Home Review of Systems 10-point ROS is otherwise unremarkable Musculoskeletal: Leg Pain, As per HPI Physical Examination - Physical Exam General: Alert, In no apparent distress, Oriented x3 HEENT: Atraumatic, PERRLA, Mucous membr. moist/pink, EOMI, Sclerae nonicteric Neck: Supple, 2+ carotid pulse no bruit, No LAD, Without JVD or thyroid abnormality Respiratory: Clear to auscultation bilaterally, Normal air movement Cardiovascular: Regular rate/rhythm, Normal S1 S2 Gastrointestinal: Normal bowel sounds, No tenderness Musculoskeletal: No tenderness Integumentary: Tenderness/swelling, Erythema (Right foot, fourth/fifth toes), Warmth Neurological: Normal speech, Normal strength at 5/5 x4 extr, Normal tone, Normal affect - Studies Laboratory Data (last 24 hrs) 06/14/22 09:19: Sodium 141, Potassium 3.2 L, BUN 21 H, Creatinine 0.59, Glucose 98, Total Bilirubin 0.4, AST 13 L, ALT 19, Alkaline Phosphatase 104 06/14/22 09:19: WBC 6.30, Hgb 13.6, Hct 39.9, Plt Count 260 Assessment and Plan - Plan Assessment: Cellulitis/ulceration of right foot failed outpatient therapyrule out osteomyelitis Hypertension GERD Restless leg syndrome Plan: Cellulitis/ulceration of right foot failed outpatient therapyrule out osteomyelitis Has been on cefdinir for 1 week, still having worsening erythema/swelling in the area. Broad-spectrum antibiotics including vancomycin/cefepime ordered. MRI ordered to rule out osteomyelitis. Podiatry consulted. Hypertension GERD Restless leg syndrome Continue home medications. DVT PPX: SCD Code status: Full Discharge Plan: Home Plan to discharge in: 72 Hours - Advance Directives Does patient have a Living Will: No Does patient have a Durable POA for Healthcare: No - Code Status/Comfort Care Code Status Assessed: Yes (Full code) Critical Care: No Time Spent Managing Pts Care (In Minutes): 70
[2022-06-14 20:20] VITALS: BMI 26.6
[2022-06-14] MEDS ORDERED: VANCOMYCIN 1 GM in NA CHLORIDE 0.9% 250 ML IVPB SCH (21:00)
[2022-06-14] MEDS ORDERED: CEFEPIME 1 GM in NA CHLORIDE 0.9% 100 ML IV SCH (22:00)
[2022-06-15] MEDS ORDERED: MORPHINE 2 MG/ML SYR IV PRN (03:08)
[2022-06-15 06:54] LABS: Absolute Lymphocytes (CBC) 1.5 K/uL (0.7-4.9); Hematocrit 34.8 % (36.0-45.0); Lymphocytes % 30.6 % (15.3-44.8); MCV 90.3 fL (80-100); MPV 7.3 fL (7.6-11.3); RBC Red Blood Cell Count 3.85 M/uL (3.86-4.86)
[2022-06-15 07:09] LABS: Potassium 3.3 mmol/L (3.5-5.1)
--- NOTE | 2022-06-15 07:09 | P.PN ---
Date of Service: 06/15/22 Subjective: Swelling gone down, continues with redness of R foot Pain is less severe otherwise no new/worsening symptoms ROS: 10 point ROS as noted above, otherwise negative Physical Exam: GEN: Alert, oriented, NAD HEENT: Normal conjunctiva, sclera anicteric CV: Regular rate and rhythm, no edema, 2+ dp/pt pulses on right Pulm: Nonlabored respirations on room air Integumentary: Right 5th toe with erythema around base, extendning proximally, ~1.5 cm superficial skin breakdown/ulcer at medial base of 5th toe, mild foul odor Neuro: Normal speech, normal affect Problem List: Cellulitis/ulceration of right foot failed outpatient therapy Hypertension GERD Restless leg syndrome MRI ordered to rule out possible osteomyelitis Infectious Disease consult requested pending further recommendations continue IV vanc / cefepime suspect can dc cefepime today, after MRI r/o abscess as well PO vs IV antibiotics restart home meds - for BP / RLS / GERD VTE: SCD Code: Full Dispo: Home, ~48-72 Hours
[2022-06-15] MEDS: KCL 20 MEQ/100 mL IVPB 20 MEQ/100 ML BAG IV SCH ×2 (08:47→12:48)
[2022-06-15] MEDS ORDERED: NA CHLORIDE 0.9% 500 ML ONE (08:48)
--- NOTE | 2022-06-15 12:47 | P.CNS ---
Date of Consult: 06/15/22 Reason for Consult: Cellulitis right foot Chief Complaint: Cellulitis/ulceration right foot History of Present Illness: Pt presented to office with swollen right foot and 4th webspace fissure. Was put on cefdinir w/o significant improvement afer 1wk and admitted Allergies No Known Drug Allergies Allergy (Verified 06/14/22 22:21) Unknown Home Medications: Pantoprazole [Protonix Tab*] 40 mg PO DAILY 06/11/14 Pramipexole [Mirapex*] 2 tab PO QID 06/11/14 Donepezil [Aricept] 5 mg PO BEDTIME 06/14/22 Duloxetine [Cymbalta Dalayed Release Pellets] 20 mg PO QID 06/14/22 Famotidine 10 mg PO DAILY PRN 06/14/22 Iron Fum & Ps Cmp/Vit C & B [Integra Capsule] 1 each PO BEDTIME 06/14/22 Losartan Potassium 25 mg PO DAILY 06/14/22 - Past Medical/Surgical History Diabetic: No -: RA -: RLS -: GERD -: hypothyroidism -: Chronic leg swealling -: Hypertension -: Discectomy -: Knee surgery -: Carpal tunnel -: Cholecystectomy -: Hysterectomy -: Right foot surgery Psychosocial/ Personal History: Patient lives at home with her - Family History Mother Medical History: Heart disease, Stroke, Cancer Father Medical History: Cancer, Other (see notes) Notes: alzhiemers - Social History Alcohol use: Yes CD- Drugs: No Caffeine use: Yes Place of Residence: Home Physical Examination Temp Pulse Resp BP Pulse Ox 98.9 F 57 16 119/54 L 95 06/15/22 08:00 06/15/22 08:00 06/15/22 08:00 06/15/22 08:00 06/15/22 08:00 General: Alert, In no apparent distress HEENT: Atraumatic, PERRLA, Mucous membr. moist/pink, EOMI, Sclerae nonicteric Integumentary: Other (swelling and redness of right foot dec from prior exam) Laboratory Data (last 24 hrs) 06/15/22 06:34: Sodium 142, Potassium 3.3 L, BUN 21 H, Creatinine 0.54 L, Glucose 104 06/15/22 06:34: WBC 4.90, Hgb 11.8 L D, Hct 34.8 L, Plt Count 230 06/14/22 09:19: Sodium 141, Potassium 3.2 L, BUN 21 H, Creatinine 0.59, Glucose 98, Total Bilirubin 0.4, AST 13 L, ALT 19, Alkaline Phosphatase 104 06/14/22 09:19: WBC 6.30, Hgb 13.6, Hct 39.9, Plt Count 260 - Problems (1) Cellulitis of foot, right Current Visit: Yes Status: Acute Conclusions/Impression: awaiting MRI result for further planning re osteomyelitis
[2022-06-15] MEDS ORDERED: NA CHLORIDE 0.9% 250 ML ONE (13:02)
[2022-06-15] MEDS: VANCOMYCIN 1 GM in NA CHLORIDE 0.9% 250 ML IVPB SCH (15:00)
--- NOTE | 2022-06-15 16:09 | RAD REPORT ---
EXAM DESCRIPTION: MRIFoot Right Wo Cont06/15/2022 3:54 pm CLINICAL HISTORY: Right foot pain COMPARISON: none TECHNIQUE: Axial, sagittal and coronal magnetic resonance imaging of the right foot was obtained. FINDINGS: Postsurgical changes involve first metatarsal. Artifact from the hardware obscures evaluat ion of distal first metatarsal and portions of the first phalanx. There does appear to be medial subl uxation of the first proximal phalanx. The second through fourth metatarsals and phalanges do not demonstrate significant abnormal signal. The fifth metatarsal and proximal phalanx demonstrate normal signal. The evaluation of the fifth middle and distal phalanx suboptimal. No significant abnormal signal within the midfoot. A edema within the subcutaneous tissues. No fracture visualized IMPRESSION: Postsurgical changes first metatarsal. Artifact obscures portions of the first metatarsa l and first proximal phalanx. There does appear to be medial subluxation first proximal phalanx. X-ra y of the right foot recommended for further evaluation Suboptimal evaluation of the fifth middle and distal phalanx. If the patient has clinical symptoms to suggest osteomyelitis in these regions then a dedicated MRI of the fifth phalanx would be recommende d. No significant abnormality of remainder of the bones seen.
--- NOTE | 2022-06-15 16:44 | CON ---
History Of Present Illness: This is a 77-year-old female I was consulted for right foot cellulitis a nd possible osteomyelitis. Patient is coming in after failing outpatient therapy by Podiatry team. MRI is pending. Denies any headache, nausea, vomiting, chest pain, abdominal pain, constipation, chaparro rrhea. Currently, patient is on vancomycin and cefepime. Feels much better today. Denies any other problems. Past Medical History: Rheumatoid arthritis, GERD, hypothyroidism, restless legs syndrome, hypertensi on, vasectomy, knee surgery, carpal tunnel syndrome, cholecystectomy, hysterectomy, right foot surger y. Social History: Nonsmoker, nondrinker. Family History: Heart disease, cancer, and stroke. Medications: Vancomycin and cefepime. See MAR for other medications. Allergies: NO KNOWN DRUG ALLERGIES. Review of Systems: A 10-point review was performed. Physical Examination: General: This is a 77-year-old female, lying in bed, not in any acute cardiopulmonary distress. Vital Signs: Temperature 98, pulse 57, respirations 16, blood pressure 119/54. HEENT: Unremarkable. Neck: Supple. Lungs: Clear to auscultation. Heart: S1, S2. Regular. Abdomen: Soft, nontender. Bowel sounds present. Extremities: Right foot with hammertoe deformity and big toe with lateral medial deviation and right fifth toe and fourth toe with swelling and redness with erythematous changes and increased warmth no sara. Pedal pulses 2 positive. Laboratory Data: Shows WBC 4.9, hemoglobin 11.8, platelets are 230. Chemistry shows BUN of 21, crea tinine 0.5. Albumin level is 3.6. MRI is pending. Assessment And Plan: Right foot cellulitis with possible osteomyelitis with hammertoe deformity and we will recommend to continue antibiotic for 2 weeks. If osteomyelitis is found on MRI, we will galdino mmend to continue for 6 weeks. Consider getting an orthotic consultation as outpatient on dischargin g patient because patient might need proper footwear. Consider getting front offloading shoes meanwh ile from physical therapy team. We will follow the patient closely. Thank you Dr. Hanley for consult. NF/MODL Voice ID: [id number] Report ID: [id number]
[2022-06-15] MEDS ORDERED: SODIUM CHLORIDE 0.9% 10ML INJ IV PRN (20:51)
[2022-06-15] MEDS ORDERED: PANTOPRAZOLE 40 MG INJ IVP ONE (20:51)
--- NOTE | 2022-06-16 07:09 | P.PN ---
Date of Service: 06/16/22 Subjective: She feels swelling and redness have slightly improved Pain is less severe around toe, some throbbing otherwise no new/worsening symptoms ROS: 10 point ROS as noted above, otherwise negative Physical Exam: GEN: Alert, oriented, NAD HEENT: Normal conjunctiva, sclera anicteric CV: Regular rate and rhythm, no edema, 2+ dp/pt pulses on right Pulm: Nonlabored respirations on room air Integumentary: Right 5th toe with erythema around base, extending proximally, ~1.5 cm superficial skin breakdown/ulcer at medial base of 5th toe Neuro: Normal speech, normal affect Problem List: Cellulitis/ulceration of right foot failed outpatient therapy Hypokalemia Hypertension GERD Restless leg syndrome MRI (06/15): No osteomyelitis, no abscess noted, indeterminant at distal fifth toe. 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 Houston recommends at least ~2 more days of IV antibiotics No plans for surgical intervention at this time, will benefit from amputation in the near future, once patient's acute infection resolves ID consulted, awaiting culture results Home medications resumed on 06/15 VTE: Lovenox Code: Full Dispo: Home, ~48 hours
[2022-06-16] MEDS ORDERED: POTASSIUM 25 MEQ EFFERV TAB PO ONE ×2 (09:00→21:00)
[2022-06-16] MEDS: VANCOMYCIN 1 GM in NA CHLORIDE 0.9% 250 ML IVPB SCH (09:23)
[2022-06-16] MEDS: LOSARTAN POTASSIUM 50 MG TABLET PO SCH (09:26)
[2022-06-16] MEDS: DULOXETINE 20 MG CAP PO SCH ×4 (09:26→20:47)
[2022-06-16] MEDS: PRAMIPEXOLE 1 MG TAB PO SCH ×4 (09:27→20:45)
[2022-06-16] MEDS: PANTOPRAZOLE 40MG TABLET PO SCH (09:34)
[2022-06-16] MEDS: DONEPEZIL HCL 5 MG TAB PO SCH (20:44)
[2022-06-17 02:36] LABS: Magnesium 2.2 mg/dL (1.6-2.4); Potassium 3.7 mmol/L (3.5-5.1)
[2022-06-17] MEDS: VANCOMYCIN 1 GM in NA CHLORIDE 0.9% 250 ML IVPB SCH ×2 (03:02→14:50)
--- NOTE | 2022-06-17 07:02 | P.PN ---
Date of Service: 06/17/22 Subjective: swelling and redness continues to improve Pain is less severe around toe gauze placed within toes, slight ooze otherwise no new/worsening symptoms ROS: 10 point ROS as noted above, otherwise negative Physical Exam: GEN: Alert, oriented, NAD HEENT: Normal conjunctiva, sclera anicteric CV: Regular rate and rhythm, no edema, 2+ dp/pt pulses on right Pulm: Nonlabored respirations on room air Integumentary: Right 5th toe with mild erythema around base, ~1.5 cm superficial skin breakdown/ulcer at medial base of 5th toe, Gauze around 5th toe Neuro: Normal speech, normal affect Problem List: Cellulitis/ulceration of right foot failed outpatient therapy; osteomyelitis ruled out Hypokalemia Hypertension GERD Restless leg syndrome MRI (06/15): No osteomyelitis, no abscess noted, indeterminant at distal fifth toe. 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 Houston recommends IV antibiotics through weekend No plans for surgical intervention during this hospitalization, will benefit from amputation in the near future, once patient's acute infection resolves ID consulted; will discuss further tomorrow if PICC is needed or transition or oral Home medications resumed on 06/15 VTE: Lovenox Code: Full Dispo: Home, ~24-48 hours
[2022-06-17] MEDS ORDERED: POTASSIUM CL SA 10 MEQ TAB PO ONE (09:00)
[2022-06-17] MEDS: PRAMIPEXOLE 1 MG TAB PO SCH ×4 (09:02→20:37)
[2022-06-17] MEDS: DULOXETINE 20 MG CAP PO SCH ×4 (09:02→20:37)
[2022-06-17] MEDS: PANTOPRAZOLE 40MG TABLET PO SCH (09:02)
[2022-06-17] MEDS: LOSARTAN POTASSIUM 50 MG TABLET PO SCH (09:03)
[2022-06-17] MEDS: ENOXAPARIN 40 MG/0.4 ML SQ SCH (09:06)
[2022-06-17] MEDS: DONEPEZIL HCL 5 MG TAB PO SCH (20:37)
[2022-06-17 22:51] VITALS: O2SAT 96
[2022-06-18] MEDS: VANCOMYCIN 1 GM in NA CHLORIDE 0.9% 250 ML IVPB SCH (03:43)
--- NOTE | 2022-06-18 06:55 | P.PN ---
Date of Service: 06/18/22 Subjective: swelling and redness continues to improve Pain around toe continues to decrease otherwise no new/worsening symptoms ROS: 10 point ROS as noted above, otherwise negative Physical Exam: GEN: Alert, oriented, NAD HEENT: Normal conjunctiva, sclera anicteric CV: Regular rate and rhythm, no edema, 2+ dp/pt pulses on right Pulm: Nonlabored respirations on room air Integumentary: Right 5th toe with mild erythema around base, ~1.5 cm superficial skin breakdown/ulcer at medial base of 5th toe Neuro: Normal speech, normal affect Problem List: Cellulitis/ulceration of right foot failed outpatient therapy; osteomyelitis ruled out Hypokalemia Hypertension GERD Restless leg syndrome MRI (06/15): No osteomyelitis, no abscess noted, indeterminant at distal fifth toe. 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 Houston recommends IV antibiotics through weekend No plans for surgical intervention during this hospitalization, will benefit from amputation in the near future, once patient's acute infection resolves ID consulted; will discuss further today if PICC is needed or transition or oral Home medications resumed on 06/15 VTE: Lovenox Code: Full Dispo: Home, ~24-48 hours
[2022-06-18 07:05] LABS: Hematocrit 37.7 % (36.0-45.0); MCV 90.2 fL (80-100); MPV 7.4 fL (7.6-11.3); RBC Red Blood Cell Count 4.18 M/uL (3.86-4.86)
[2022-06-18 07:21] LABS: Potassium 3.7 mmol/L (3.5-5.1)
[2022-06-18 08:30] VITALS: BP 152/70; TEMP 98.6
[2022-06-18] MEDS: PRAMIPEXOLE 1 MG TAB PO SCH ×2 (08:50→13:38)
[2022-06-18] MEDS: PANTOPRAZOLE 40MG TABLET PO SCH (08:50)
[2022-06-18] MEDS: DULOXETINE 20 MG CAP PO SCH ×2 (08:50→13:38)
[2022-06-18] MEDS: LOSARTAN POTASSIUM 50 MG TABLET PO SCH (08:50)
[2022-06-18] MEDS: ENOXAPARIN 40 MG/0.4 ML SQ SCH (08:51)
--- NOTE | 2022-06-18 09:07 | P.PN ---
Subjective Date of Service: 06/18/22 Chief Complaint: Cellulitis/ulceration right foot Patient lying in bed comfortable and declined having any n, v, d, or constipation. at the bedside Physical Examination - Vital Signs Temperature: 98.6 F Blood Pressure: 152/70 Pulse: 60 Respirations: 16 Pulse Ox (%): 96 - Physical Exam General: Alert, In no apparent distress, Oriented x3 Neck: Supple Respiratory: Clear to auscultation bilaterally Cardiovascular: No edema, Normal S1 S2 Gastrointestinal: Normal bowel sounds Musculoskeletal: No swelling, Swelling (right 5th toe ), Erythema (right 5th toe ) Integumentary: Skin lesion (right 5th toe ), Tenderness/swelling, Erythema Neurological: Normal speech, Normal tone, Sensation intact, Normal affect - Studies Laboratory Data (last 24 hrs) 06/18/22 06:54: WBC 5.00, Hgb 12.7, Hct 37.7, Plt Count 253 06/18/22 06:54: Sodium 137, Potassium 3.7, BUN 11, Creatinine 0.59, Glucose 110 H current medications Acetaminophen (Acetaminophen 325 Mg Tablet) 650 mg PO Q6H PRN PRN Reason: Pain scale 2-4 (Mild) Donepezil HCl (Donepezil Hcl 5 Mg Tab) 5 mg PO BEDTIME [facility] Last Admin: 06/17/22 20:37 Dose: 5 mg Duloxetine HCl (Duloxetine 20 Mg Cap) 20 mg PO QID [facility] Last Admin: 06/18/22 08:50 Dose: 20 mg Enoxaparin Sodium (Enoxaparin 40 Mg/0.4 Ml) 40 mg SQ DAILY [facility] Last Admin: 06/18/22 08:51 Dose: 40 mg Vancomycin HCl 1 gm/ Sodium (Chloride) 250 mls @ 250 mls/hr IVPB Q12H [facility]; Protocol Last Admin: 06/18/22 03:43 Dose: 250 mls Losartan Potassium (Losartan Potassium 50 Mg Tablet) 25 mg PO DAILY [facility] Last Admin: 06/18/22 08:50 Dose: 25 mg Melatonin (Melatonin 5 Mg Tablet) 5 mg PO BEDTIME PRN PRN PRN Reason: INSOMNIA Morphine Sulfate (Morphine 2 Mg/Ml Syr) 2 mg IV Q6H PRN PRN Reason: Pain scale 8-10 (Severe) Ondansetron HCl (Ondansetron 4 Mg/2 Ml Vial) 4 mg IV Q6HP PRN PRN Reason: NAUSEA / VOMITING Pantoprazole Sodium (Pantoprazole 40mg Tablet) 40 mg PO DAILY [facility]; Protocol Last Admin: 06/18/22 08:50 Dose: 40 mg Pramipexole Dihydrochloride (Pramipexole 1 Mg Tab) 2 mg PO QID [facility] Last Admin: 06/18/22 08:50 Dose: 2 mg Sodium Chloride (Flush Normal Saline 10 Ml) 10 ml IV BID [facility] Last Admin: 06/18/22 08:51 Dose: 10 ml Sodium Chloride (Sodium Chloride 0.9% 10ml Inj) 10 ml IV UD PRN PRN Reason: Diluant Tramadol HCl (Tramadol Hcl 50 Mg Tab) 50 mg PO TID PRN PRN Reason: Pain scale 5-7 (Moderate) Last Admin: 06/14/22 23:17 Dose: 50 mg Imagings Data: MRI Foot Right Wo Cont06/15/2022 FINDINGS: Postsurgical changes involve first metatarsal. Artifact from the hardware obscures evaluation of distal first metatarsal and portions of the first phalanx. There does appear to be medial subluxation of the first proximal phalanx. The second through fourth metatarsals and phalanges do not demonstrate significant abnormal signal. The fifth metatarsal and proximal phalanx demonstrate normal signal. The evaluation of the fifth middle and distal phalanx suboptimal. No significant abnormal signal within the midfoot. A edema within the subcutaneous tissues. No fracture visualized IMPRESSION: Postsurgical changes first metatarsal. Artifact obscures portions of the first metatarsal and first proximal phalanx. There does appear to be medial subluxation first proximal phalanx. X-ray of the right foot recommended for further evaluation Suboptimal evaluation of the fifth middle and distal phalanx. If the patient has clinical symptoms to suggest osteomyelitis in these regions then a dedicated MRI of the fifth phalanx would be recommended. No significant abnormality of remainder of the bones seen Assessment And Plan - Current Problems (Diagnosis) (1) Cellulitis of foot, right Plan: Antibiotics: - Current on IV Vancomycin (06/17- ) Recommendations: - Continue IV antibiotics for total of 2 weeks duration, and can switch to PO Bactrim when discharge - Orthotic consultation as outpatient when discharge - Consider getting front offloading shoes meanwhile from physical therapy team - Plan - Cellulitis/ulceration of right foot failed outpatient therapyrule out osteomyelitis: Need IV antibiotics for total of 2 weeks duration, and can switch to PO Bactrim when discharge - Hypertension - GERD - Restless leg syndrome ID will monitor the patient closely for signs of infection with fever and WBC trends Case has been discussed with Dr. Velez, N
[2022-06-18] MEDS ORDERED: SMZ./TMP. 800/160 MG TABLET PO SCH (13:00)
== END 2022-06-18 13:40 | disposition home or self-care (01) | DRG 603 ==
LOC: 2ND 18:31
PROVIDERS: ADMIT Hospitalist; ATTEND Hospitalist
DX: L03.115 Cellulitis of right lower limb (principal); K21.9 Gastro-esophageal reflux disease without esophagitis; I10 Essential (primary) hypertension; G25.81 Restless legs syndrome; E03.9 Hypothyroidism, unspecified; E87.6 Hypokalemia; E11.621 Type 2 diabetes mellitus with foot ulcer; L97.519 Non-pressure chronic ulcer of other part of right foot with unspecified severity; Z90.49 Acquired absence of other specified parts of digestive tract; Z79.890 Hormone replacement therapy; Z79.899 Other long term (current) drug therapy; Z90.710 Acquired absence of both cervix and uterus; Z20.822 Contact with and (suspected) exposure to COVID-19
CPT/HCPCS: 36415; 80048; 80053; 80202; 83735; 84132; 85025; 85027; 87811; C9113; J0692; J1650; J3370; J3480; J7050

== ENCOUNTER 2024-12-30 11:35 | Emergency (ER) | payer OTHER ==
[2024-12-30 12:05] LABS: Absolute Lymphocytes (CBC) 0.8 K/uL (0.7-4.9); Hematocrit 36.8 % (36.0-45.0); Hemoglobin 12.6 g/dL (12.0-15.0); MCH 30.8 pg (27.0-35.0); MCHC 34.3 g/dL (32.0-36.0); MCV 89.7 fL (80-100); MPV 7.7 fL (7.6-11.3); Nucleated RBC Absolute Count 0.0 (0-0); Nucleated Red Blood Cells % 0.1 % (0-0); RBC Red Blood Cell Count 4.10 M/uL (3.86-4.86); White Blood Count 3.70 thou/uL (4.3-10.9)
[2024-12-30 12:16] LABS: PT Prothrombin Time 12.0 SECONDS (10-13.0); Protime INR 1.06
[2024-12-30 12:26] LABS: ALT/SGPT 22.0 U/L (13-56); AST/SGOT 20.0 U/L (15-37); Albumin 3.1 g/dL (3.4-5.0); Albumin/Globulin Ratio 0.9 (1.1-1.8); Alkaline Phosphatase 108.0 U/L (45-117); Anion Gap 8.1 mEq/L (5.0-15.0); BUN Blood Urea Nitrogen 14.0 mg/dL (7-18); Globulin 3.3 g/dL (2.3-3.5); Glucose Level 105.0 mg/dL (74-106); Potassium 3.1 mEq/L (3.5-5.1); Troponin High Sensitivity 7.2 pg/mL (<58.9)
--- NOTE | 2024-12-30 12:50 | RAD REPORT ---
EXAMINATION: ONE VIEW CHEST XR CLINICAL INDICATION: Female, 79 years old.,CHEST PAIN TECHNIQUE: Frontal chest projection is submitted. Examination is limited by patient positioning and t echnique. COMPARISON: 07/05/2022 FINDINGS: The lungs are well inflated and clear. No pneumothorax or sizable effusion. The heart is normal in s ize. Mediastinal contours are unremarkable. Several left levoconvex curvature at the thoracolumbar junction. IMPRESSION: No acute intrathoracic abnormalities.
--- NOTE | 2024-12-30 13:19 | EDPHYS ---
Physician Documentation [facility] Name: Jaqueline Jensen Age: 79 yrs Sex: Female : 1945 Arrival Date: 12/30/2024 Time: 11:35 Bed 2 Private MD: ED Physician Subhash Florez HPI: 12/30 13:10 This 79 yrs old Female presents to ER via EMS with complaints of General Weakness. sp3 13:10 79-year-old female currently transitioning primary care physicians and history of sp3 hypertension and anemia now presents to the ED with generalized weakness. Symptoms occurred over the last 2 to 3 days and she just states that she is overall generally weak. She denies any other symptoms including fever, URI symptoms, headache, neck pain, chest pain, shortness of breath, dyspnea on exertion, vomiting, diarrhea, abdominal pain, extremity pain, rash, bleeding, or any other signs or symptoms on ROS at this time. She only endorses mild nausea when asked. She is taking exogenous iron for her anemia.. Historical: - Allergies: 11:53 No Known Allergies; bp - PMHx: 11:53 Hypertensive disorder; bp - PSHx: 11:53 Cholecystectomy; bp - Immunization history:: Adult Immunizations up to date. - Infectious Disease History:: Denies. - Social history:: Smoking status: Patient denies any tobacco usage or history of. ROS: 13:11 Constitutional: Negative for fever, chills, and weight loss, Eyes: Negative for injury, sp3 pain, redness, and discharge, ENT: Negative for injury, pain, and discharge, Neck: Negative for injury, pain, and swelling, Cardiovascular: Negative for chest pain, palpitations, and edema, Respiratory: Negative for shortness of breath, cough, wheezing, and pleuritic chest pain, Back: Negative for injury and pain, MS/Extremity: Negative for injury and deformity, Skin: Negative for injury, rash, and discoloration, Neuro: Negative for headache, weakness, numbness, tingling, and seizure, Psych: Negative for depression, anxiety, suicide ideation, homicidal ideation, and hallucinations, Allergy/Immunology: Negative for hives, rash, and allergies, Endocrine: Negative for neck swelling, polydipsia, polyuria, polyphagia, and marked weight changes, Hematologic/Lymphatic: Negative for swollen nodes, abnormal bleeding, and unusual bruising, 13:11 All other systems are negative, Exam: 13:12 Constitutional: This is a well developed, well nourished patient who is awake, alert, sp3 and in no acute distress. Head/Face: Normocephalic, atraumatic. Eyes: Pupils equal round and reactive to light, extra-ocular motions intact. Lids and lashes normal. Conjunctiva and sclera are non-icteric and not injected. Cornea within normal limits. Periorbital areas with no swelling, redness, or edema. ENT: Nares patent. No nasal discharge, no septal abnormalities noted. External auditory canals are clear. Oropharynx with no redness, swelling, or masses, exudates, or evidence of obstruction, uvula midline. Mucous membranes moist. Neck: Trachea midline, no thyromegaly or masses palpated, and no cervical lymphadenopathy. Supple, full range of motion without nuchal rigidity, or vertebral point tenderness. No Meningismus. Chest/axilla: Normal chest wall appearance and motion. Nontender with no deformity. No lesions are appreciated. Cardiovascular: Regular rate and rhythm with a normal S1 and S2. No gallops, murmurs, or rubs. Normal PMI, no JVD. No pulse deficits. Respiratory: Lungs have equal breath sounds bilaterally, clear to auscultation and percussion. No rales, rhonchi or wheezes noted. No increased work of breathing, no retractions or nasal flaring. Abdomen/GI: Soft, non-tender, with normal bowel sounds. No distension or tympany. No guarding or rebound. No evidence of tenderness throughout. Back: No spinal tenderness. No costovertebral tenderness. Full range of motion. Skin: Warm, dry with normal turgor. Normal color with no rashes, no lesions, and no evidence of cellulitis. MS/ Extremity: Pulses equal, no cyanosis. Neurovascular intact. Full, normal range of motion. Neuro: Awake and alert, GCS 15, oriented to person, place, time, and situation. Cranial nerves II-XII grossly intact. Motor strength 5/5 in all extremities. Sensory grossly intact. Cerebellar exam normal. Normal gait. Psych: Awake, alert, with orientation to person, place and time. Behavior, mood, and affect are within normal limits. 13:17 ECG was reviewed by the Attending Physician. EKG demonstrates normal sinus rhythm at 66 sp3 bpm with normal intervals, normal QRS, leftward axis and nonspecific diffuse ST/T changes without evidence of acute ischemia at this time. Vital Signs: 11:51 BP 163 / 79; Pulse 70; Resp 15; Temp 98; Pulse Ox 100% on R/A; bp 12:00 BP 156 / 74; Pulse 59; Resp 18; Pulse Ox 100% ; db 12:45 BP 146 / 56; Pulse 50; Resp 15; Pulse Ox 100% on R/A; db 13:15 BP 149 / 70; Pulse 48; Resp 16; Pulse Ox 99% on R/A; db 14:45 BP 158 / 73; Pulse 52; Resp 16; Pulse Ox 100% on R/A; db MDM: 11:57 Medical Screening Exam initiated sp3 13:15 Data reviewed: vital signs, nurses notes, lab test result(s), EKG, radiologic studies. sp3 ED course: 79-year-old female with PMH above now with generalized weakness. Differential diagnosis includes electrolyte abnormality including hypokalemia, anemia, other viral illness, and to lesser degree ACS or other pathology. I am not highly suspicious of UTI, sepsis, shock or any other critical process at this time.. 13:16 ED course: Full workup negative including hemoglobin at 12.6. Potassium is at 3.1 which sp3 could be contributing to her weakness. We will administer normal saline, ondansetron IV for nausea and p.o. potassium. Remainder of her workup is negative. We will safely discharge her home after that to follow-up with her PCP.. 12/30 11:50 Order name: CBC with Diff; Complete Time: 12:54 bp 12/30 11:50 Order name: PT-INR; Complete Time: 12:54 bp 12/30 11:50 Order name: Troponin HS; Complete Time: 12:54 bp 12/30 11:50 Order name: CMP; Complete Time: 12:54 bp 12/30 11:50 Order name: XRAY Chest (1 view); Complete Time: 12:54 bp 12/30 11:50 Order name: Cardiac monitoring; Complete Time: 11:50 bp 12/30 11:50 Order name: EKG - Nurse/Tech; Complete Time: 11:50 bp 12/30 11:50 Order name: IV Saline Lock; Complete Time: 11:50 bp 12/30 11:50 Order name: Labs collected and sent; Complete Time: 11:50 bp 12/30 11:50 Order name: O2 Per Protocol; Complete Time: 11:50 bp 12/30 11:50 Order name: O2 Sat Monitoring; Complete Time: 11:51 bp Administered Medications: 13:15 Drug: NS 0.9% IV 1000 ml IV at 1 bolus Per protocol; to be given as a bolus over 60 bp minutes Route: IV; Rate: 1 bolus; Site: left forearm; 15:12 Follow up: Response: No adverse reaction; IV Status: Completed infusion; IV Intake: db 1000ml 13:15 Drug: Ondansetron IVP 4 mg IVP once; over 2 minutes Route: IVP; Site: left forearm; bp 15:12 Follow up: Response: No adverse reaction db 13:15 Drug: Potassium PO Effervescent Tablet 50 mEq PO once; dissolve in 4 ounces of water or bp juice Route: PO; 15:12 Follow up: Response: No adverse reaction db Disposition Summary: 12/30/24 13:18 Discharge Ordered Notes: Location: Home sp3 Condition: Stable sp3 Diagnosis - Hypokalemia, generalized weakness sp3 Followup: sp3 - With: Private Physician - When: Upon discharge from the Emergency Department - Reason: Continuance of care Discharge Instructions: - Discharge Summary Sheet sp3 - Nausea, Adult sp3 - Hypokalemia sp3 Forms: - Medication Reconciliation Form sp3 - Antibiotic Education sp3 - Prescription Opioid Use sp3 - Patient Portal Instructions sp3 - Leadership Thank You Letter sp3 Prescriptions: - ondansetron 4 mg Oral Tablet,disintegrating - take 1 tablet ORAL route every 12 hours as needed for nausea and vomiting; 20 sp3 tablet; Refills: 0, Product Selection Permitted Signatures: Dispatcher [employer] EDDejan Bragg, RN RN bp Subhash Florez MD MD sp3 Shani Mobley RN db Corrections: (The following items were deleted from the chart) 11:51 11:51 CBC+H.LAB.BRZ ordered. EDMS EDMS 11:51 11:51 PROTIME (+INR)+COAG.LAB.BRZ ordered. EDMS EDMS 11:51 11:51 Troponin High Sensitivity+C.LAB.BRZ ordered. EDMS EDMS 11:51 11:51 COMPREHENSIVE METABOLIC PANEL+C.LAB.BRZ ordered. EDMS EDMS 11:51 11:51 Chest Single View+RAD.RAD.BRZ ordered. EDMS EDMS
--- NOTE | 2024-12-30 13:19 | ER ---
Nurse's Notes [facility] Name: Jaqueline Jensen Age: 79 yrs Sex: Female : 1945 Arrival Date: 12/30/2024 Time: 11:35 Bed 2 Private MD: Diagnosis: Hypokalemia, generalized weakness Presentation: 12/30 11:51 Chief complaint: EMS states: NAUSEA, WEAKNESS AND BRADYCARDIA x2 DAYS. Coronavirus bp screen: At this time, the client does not indicate any symptoms associated with coronavirus-19. Ebola Screen: No symptoms or risks identified at this time. Initial Sepsis Screen: Does the patient meet any 2 criteria? No. Patient's initial sepsis screen is negative. Does the patient have a suspected source of infection? No. Patient's initial sepsis screen is negative. Risk Assessment: Do you want to hurt yourself or someone else? Patient reports no desire to harm self or others. Note PT SYMPTOMATIC BRADYCARDIA ON SCENE, HR \R\40. Onset of symptoms is unknown. Care prior to arrival: Medication(s) given: 1MG ATROPINE, 4MG ZOFRAN, 800CC NS IV initiated. 20 GA, in the left forearm. 11:51 Method Of Arrival: EMS: [facility] bp 11:51 Acuity: DANIEL 3 bp Triage Assessment: 11:53 General: Appears in no apparent distress. Behavior is calm, cooperative, appropriate bp for age. Pain: Denies pain. EENT: No deficits noted. Neuro: No deficits noted. Cardiovascular: Rhythm is sinus rhythm. Respiratory: No deficits noted. GI: Reports nausea. : No signs and/or symptoms were reported regarding the genitourinary system. Derm: No deficits noted. Musculoskeletal: No deficits noted. Historical: - Allergies: 11:53 No Known Allergies; bp - PMHx: 11:53 Hypertensive disorder; bp - PSHx: 11:53 Cholecystectomy; bp - Immunization history:: Adult Immunizations up to date. - Infectious Disease History:: Denies. - Social history:: Smoking status: Patient denies any tobacco usage or history of. Screenin:00 [facility] ED Fall Risk Assessment (Adult) History of falling in the last 3 months, db including since admission No falls in past 3 months (0 pts) Confusion or Disorientation No (0 pts) Intoxicated or Sedated No (0 pts) Impaired Gait Yes (1 pt) Mobility Assist Device Used Yes (1 pt) Altered Elimination No (0 pt) Score/Fall Risk Level 0 - 2 = Low Risk Oriented to surroundings, Maintained a safe environment. Abuse screen: Denies threats or abuse. Denies injuries from another. Nutritional screening: No deficits noted. Tuberculosis screening: No symptoms or risk factors identified. Assessment: 13:45 Reassessment: DC ON HOLD FOR IVF. bp Vital Signs: 11:51 BP 163 / 79; Pulse 70; Resp 15; Temp 98; Pulse Ox 100% on R/A; bp 12:00 BP 156 / 74; Pulse 59; Resp 18; Pulse Ox 100% ; db 12:45 BP 146 / 56; Pulse 50; Resp 15; Pulse Ox 100% on R/A; db 13:15 BP 149 / 70; Pulse 48; Resp 16; Pulse Ox 99% on R/A; db 14:45 BP 158 / 73; Pulse 52; Resp 16; Pulse Ox 100% on R/A; db ED Course: 11:46 Patient arrived in ED. bc6 11:49 Dejan Angel, RN is Primary Nurse. bp 11:52 Triage completed. bp 11:54 Arm band placed on. bp 11:54 Initial lab(s) drawn, by me, sent to lab. EKG done, by ED staff, reviewed by Subhash Florez MD. Maintain EMS IV. Dressing intact. Good blood return noted. Site clean \T\ dry. Gauge \T\ site: 20 LFA. Flushed with 10 mL NS. 11:55 Subhash Florez MD is Attending Physician. sp3 12:16 XRAY Chest (1 view) In Process Unspecified. EDMS 15:11 Patient has correct armband on for positive identification. Bed in low position. Call db light in reach. Side rails up X 1. Provided Education on: DISCHARGE AND FOLLOWUP. Client placed on continuous cardiac and pulse oximetry monitoring. NIBP monitoring applied. electronic device monitor on. Pulse ox on. NIBP on. Warm blanket given. Pillow given. 15:11 No provider procedures requiring assistance completed. IV discontinued, intact, db bleeding controlled, No redness/swelling at site. Administered Medications: 13:15 Drug: NS 0.9% IV 1000 ml IV at 1 bolus Per protocol; to be given as a bolus over 60 bp minutes Route: IV; Rate: 1 bolus; Site: left forearm; 15:12 Follow up: Response: No adverse reaction; IV Status: Completed infusion; IV Intake: db 1000ml 13:15 Drug: Ondansetron IVP 4 mg IVP once; over 2 minutes Route: IVP; Site: left forearm; bp 15:12 Follow up: Response: No adverse reaction db 13:15 Drug: Potassium PO Effervescent Tablet 50 mEq PO once; dissolve in 4 ounces of water or bp juice Route: PO; 15:12 Follow up: Response: No adverse reaction db Medication: 15:12 VIS not applicable for this client. db Intake: 15:12 IV: 1000ml; Total: 1000ml. db Outcome: 13:18 Discharge ordered by MD. cui 15:11 Discharged to home via wheelchair, with family, db 15:11 Condition: stable 15:11 Discharge instructions given to patient, family, Instructed on discharge instructions, follow up and referral plans. Prescriptions given X 1, 15:13 Patient left the ED. db Signatures: Dispatcher [employer] EDDejan Bragg, RN RN Subhash Moore MD MD sp3 Shani Mobley, BURKE RN Jennifer Hernandez 6
[2024-12-30] MEDS ORDERED: POTASSIUM 25 MEQ EFFERV TAB ONE (13:23)
[2024-12-30] MEDS ORDERED: ONDANSETRON 4 MG/2 ML VIAL ONE (13:23)
[2024-12-30] MEDS ORDERED: NA CHLORIDE 0.9% 1,000 ML ONE (13:23)
[2024-12-30 15:25] VITALS: TEMP 98
[2024-12-30 15:31] VITALS: BP 158/73; O2SAT 100
== END 2024-12-30 15:13 | disposition home or self-care (01) ==
LOC: ER 11:35
DX: E87.6 Hypokalemia (principal); I10 Essential (primary) hypertension
CPT/HCPCS: 96361; 93005; 85025; 36415; 85610; 84484; 80053; 71045; 96374; 99285; J2405; J7030